=== PATIENT | female | born 1945 | race Caucasian/White ===

== ENCOUNTER 2022-07-18 14:28 | Inpatient (IN) | payer OTHER ==
[2022-07-18 18:37] LABS: BASO % 0.3 % (0-2.0); EOS % 2.4 % (0-4.5); HEMATOCRIT 30.6 % (32.4-45.2); HEMOGLOBIN 10.6 GM/dL (10.7-15.3); LYMPH % 20.5 % (8-40); MCH 33.2 pg (25.7-33.7); MCHC 34.5 g/dl (32.0-36.0); MEAN CELL VOLUME 96.3 fl (80-96); MEAN PLT VOLUME 7.7 fl (7.5-11.1); MONO % 8.4 % (3.8-10.2); NEUT % 68.4 % (42.8-82.8); PLATELET COUNT 311 10^3/uL (134-434); RBC 3.18 M/mm3 (3.60-5.2); WHITE BLOOD COUNT 8.4 K/mm3 (4.0-10.0)
[2022-07-18 18:39] LABS: CALCIUM 9.2 mg/dL (8.5-10.1)
[2022-07-18 18:40] LABS: BLOOD UREA NITROGEN 29.3 mg/dL (7-18)
[2022-07-18 18:42] LABS: CREATININE 1.6 mg/dL (0.55-1.3)
[2022-07-18 18:44] LABS: BILIRUBIN,TOTAL 0.2 mg/dL (0.2-1); TOT PROT 6.2 g/dl (6.4-8.2)
[2022-07-18] MEDS ORDERED: SODIUM CHLORIDE 0.9% 500 ML INFUS.BAG IV ONE (19:33)
[2022-07-18] MEDS ORDERED: D5-1/2NS+10 MEQ KCL - 10 MEQ/1,000 ML INFUS.BAG IV SCH (21:15)
[2022-07-18] MEDS ORDERED: PANTOPRAZOLE 40 MG TABLET PO ONE (21:54)
[2022-07-18] MEDS: PANTOPRAZOLE 40 MG TABLET PO SCH (22:04)
[2022-07-18] MEDS ORDERED: HEPARIN NA (PORCINE) 5,000 UNITS/ML 1ML VIAL ONE (22:13)
[2022-07-18] MEDS: HEPARIN NA (PORCINE) 5,000 UNITS/ML 1ML VIAL SQ SCH (22:21)
[2022-07-19] MEDS ORDERED: ACETAMINOPHEN 500 MG TABLET (FP) PO ONE (01:39)
[2022-07-19] MEDS ORDERED: MELATONIN 1 MG TABLET PO ONE (01:56)
[2022-07-19] MEDS: HEPARIN NA (PORCINE) 5,000 UNITS/ML 1ML VIAL SQ SCH (05:58)
[2022-07-19 06:59] VITALS: BMI 29.7
[2022-07-19 08:04] LABS: BASO % 0.6 % (0-2.0); EOS % 2.9 % (0-4.5); HEMATOCRIT 31.6 % (32.4-45.2); HEMOGLOBIN 10.7 GM/dL (10.7-15.3); LYMPH % 22.3 % (8-40); MCH 32.2 pg (25.7-33.7); MCHC 33.8 g/dl (32.0-36.0); MEAN CELL VOLUME 95.1 fl (80-96); MEAN PLT VOLUME 7.9 fl (7.5-11.1); MONO % 7.5 % (3.8-10.2); NEUT % 66.7 % (42.8-82.8); PLATELET COUNT 270 10^3/uL (134-434); RBC 3.32 M/mm3 (3.60-5.2); RDW 12.7 % (11.6-15.6); WHITE BLOOD COUNT 7.7 K/mm3 (4.0-10.0)
[2022-07-19 08:19] LABS: CALCIUM 9.4 mg/dL (8.5-10.1)
[2022-07-19 08:20] LABS: BLOOD UREA NITROGEN 22.8 mg/dL (7-18)
[2022-07-19 08:23] LABS: CREATININE 1.4 mg/dL (0.55-1.3)
[2022-07-19] MEDS ORDERED: IRON SUCROSE INJECTION 300 MG in SODIUM CHLORIDE 235 ML IVPB ONE (09:00)
[2022-07-19] MEDS ORDERED: PNEUMOC 20-VAL CONJ-DIP CRM/PF 0.5 ML SYRINGE IM ONE (10:00)
[2022-07-19] MEDS: PANTOPRAZOLE 40 MG TABLET PO SCH (10:19)
[2022-07-19] MEDS ORDERED: DOCUSATE SODIUM 100 MG CAPSULE (FP) PO PRN (12:44)
[2022-07-19] MEDS ORDERED: POLYETHYLENE GLYCOL (HEALTHYLAX) 3350 17 GM PACKET PO PRN (12:45)
[2022-07-19] MEDS ORDERED: TICAGRELOR 60 MG TABLET PO SCH (12:45)
[2022-07-19] MEDS ORDERED: SENNOSIDES 8.6MG TABLET (FP) PO PRN (12:46)
[2022-07-19] MEDS ORDERED: ACETAMINOPHEN 325 MG TABLET (FP) PO PRN (13:31)
[2022-07-19] MEDS ORDERED: metoPROLOL SUCCINATE 25 MG TAB.SR.24H (FP) PO SCH (13:45)
[2022-07-19] MEDS ORDERED: RANOLAZINE E.R. 500 MG TABLET (FP) PO SCH (13:45)
[2022-07-19] MEDS ORDERED: ASPIRIN COATED 81 MG TABLET.EC PO SCH (13:45)
[2022-07-19] MEDS ORDERED: SERTRALINE HCL 50 MG TABLET (FP) PO SCH (13:45)
[2022-07-19] MEDS ORDERED: hydrALAZINE HCL 50 MG TABLET (FP) PO SCH ×2 (14:00)
[2022-07-19 14:17] VITALS: RESP 20
[2022-07-19 16:14] VITALS: BP 139/71; PULSE 86; TEMP 98
[2022-07-19] MEDS ORDERED: INSULIN SLIDING SCALE (NOVOLOG) 1 VIAL SQ SCH (16:30)
[2022-07-19] MEDS ORDERED: amLODIPine BESYLATE 10 MG TABLET (FP) PO SCH (22:00)
[2022-07-19] MEDS ORDERED: GABAPENTIN 300 MG CAPSULE PO SCH (22:00)
[2022-07-19] MEDS ORDERED: MONTELUKAST NA 10 MG TABLET PO SCH (22:00)
[2022-07-19] MEDS ORDERED: ATORVASTATIN CA 80 MG TABLET (FP) PO SCH (22:00)
[2022-07-19] MEDS ORDERED: MELATONIN 1 MG TABLET PO SCH (22:00)
[2022-07-20] MEDS ORDERED: LOSARTAN POTASSIUM 50 MG TABLET PO SCH (10:00)
[2022-07-20] MEDS ORDERED: FERROUS SO4 325 MG TABLET (FP) PO SCH (10:00)
== END 2022-07-19 17:05 | disposition home or self-care (01) | DRG 312 ==
LOC: JER 14:28 → JERBED 21:04 → J7W 07-19 00:50
PROVIDERS: ADMIT Internal Medicine; ATTEND Internal Medicine
DX: R55 Syncope and collapse (principal); I25.10 Atherosclerotic heart disease of native coronary artery without angina pectoris; I10 Essential (primary) hypertension; E78.5 Hyperlipidemia, unspecified; D50.9 Iron deficiency anemia, unspecified
CPT/HCPCS: 0241U-QW; 36415; 70450-TC; 80048; 80053; 82728; 82962; 83540; 83550; 85025; 93005; 93010; 97116-GP; 97161-GP; 99285-25; J1644; J1756

== ENCOUNTER 2023-02-17 06:12 | Emergency (ER) | payer OTHER ==
[2023-02-17 06:24] VITALS: RESP 20; BMI 28.8
[2023-02-17] MEDS ORDERED: ONDANSETRON 4 MG/2 ML VIAL IVPUSH ONE (06:27)
[2023-02-17] MEDS ORDERED: ACETAMINOPHEN 1000 MG/100 ML BAG IVPB ONE (06:27)
[2023-02-17] MEDS ORDERED: ACETAMINOPHEN INJECTION 100 ML IVPB ONE (07:34)
[2023-02-17] MEDS ORDERED: ONDANSETRON 4 MG/2 ML VIAL ONE (07:34)
[2023-02-17] MEDS ORDERED: FAMOTIDINE 20 MG/50 ML IVPB 20 MG/50 ML MG IVPB ONE ×2 (07:38→07:41)
[2023-02-17 07:58] LABS: BASO % 0.5 % (0-2.0); EOS % 1.6 % (0-4.5); HEMATOCRIT 33.9 % (32.4-45.2); HEMOGLOBIN 11.6 GM/dL (10.7-15.3); LYMPH % 20.8 % (8-40); MCH 31.9 pg (25.7-33.7); MCHC 34.2 g/dl (32.0-36.0); MEAN CELL VOLUME 93.5 fl (80-96); MEAN PLT VOLUME 7.6 fl (7.5-11.1); MONO % 7.8 % (3.8-10.2); NEUT % 69.3 % (42.8-82.8); PLATELET COUNT 309 10^3/uL (134-434); RBC 3.62 M/mm3 (3.60-5.2); RDW 13.1 % (11.6-15.6); WHITE BLOOD COUNT 9.4 K/mm3 (4.0-10.0)
[2023-02-17] MEDS ORDERED: SODIUM CHLORIDE 0.9% 500 ML INFUS.BAG IV ONE ×2 (08:03→10:47)
[2023-02-17 08:14] LABS: POTASSIUM 4.6 mmol/L (3.5-5.1)
[2023-02-17 08:16] LABS: ALBUMIN 3.9 g/dl (3.4-5.0); CALCIUM 10.6 mg/dL (8.5-10.1); MAGNESIUM 1.6 mg/dL (1.8-2.4)
[2023-02-17 08:17] LABS: INR 1.07 (0.83-1.09); PROTHROMBIN TIME (PATIENT) 12.4 SEC (9.7-13.0)
[2023-02-17 08:19] LABS: CREATININE 1.7 mg/dL (0.55-1.3)
[2023-02-17 08:21] LABS: BILIRUBIN,TOTAL 0.4 mg/dL (0.2-1); TOT PROT 7.5 g/dl (6.4-8.2)
[2023-02-17] MEDS ORDERED: MAGNESIUM SULF 50% (8.12 MEQ/2 ML-1 GM VIAL) IVPB ONE (09:55)
[2023-02-17] MEDS ORDERED: MAGNESIUM SULFATE IN WATER 2 GM/50 ML IVPB IVPB ONE (10:02)
[2023-02-17 11:35] VITALS: BP 149/80; PULSE 96; TEMP 98.3
[2023-02-17 12:25] LABS: EPI CELLS 10 /uL (0-25.1); HYALINE CASTS 0 /uL (0-3.1); PH,URINE 6.5 (5.0-8.0); URINE APPEARANCE CLEAR; URINE BACTERIA 24 /uL (0-1359); URINE BILIRUBIN NEGATIVE (NEGATIVE); URINE COLOR YELLOW; URINE GLUCOSE (UA) NEGATIVE (NEGATIVE); URINE KETONE NEGATIVE (NEGATIVE); URINE LEUK ESTERASE TRACE (NEGATIVE); URINE NITRITE NEGATIVE (NEGATIVE); URINE PROTEIN NEGATIVE (NEGATIVE); URINE RBC 31 /uL (0-23.9); URINE UROBILINOGEN 0.2 mg/dL (0.2-1.0); URINE WBC 34 /uL (0-25.8)
== END 2023-02-17 17:45 | disposition home or self-care (01) ==
LOC: JER 06:12
PROC: 3E033GC Introduction of Other Therapeutic Substance into Peripheral Vein, Percutaneous Approach (ICD-10-PCS; principal; 2023-02-17)
PROC: 3E033GC Introduction of Other Therapeutic Substance into Peripheral Vein, Percutaneous Approach (ICD-10-PCS; 2023-02-17)
PROC: 3E033NZ Introduction of Analgesics, Hypnotics, Sedatives into Peripheral Vein, Percutaneous Approach (ICD-10-PCS; 2023-02-17)
PROC: 3E033GC Introduction of Other Therapeutic Substance into Peripheral Vein, Percutaneous Approach (ICD-10-PCS; 2023-02-17)
DX: R11.2 Nausea with vomiting, unspecified (principal); R10.84 Generalized abdominal pain; K59.00 Constipation, unspecified; R07.0 Pain in throat
CPT/HCPCS: 36415; 71045-TC-FY; 74176-TC; 80053; 81003; 83605; 83690; 83735; 84484; 85025; 85610; 85730; 87086; 93005; 93010; 99285-25

== ENCOUNTER 2023-08-03 04:18 | Day surgery (SDC) | payer OTHER ==
[2023-07-26 11:14] VITALS: BMI 28.8
[2023-08-03] MEDS ORDERED: LIDOCAINE HCL 1%, 10 MG/ML (20ML VIAL) ONE (07:19)
[2023-08-03] MEDS ORDERED: HEPARIN NA (PORCINE) 5,000 UNITS/ML 1ML VIAL ONE (07:19)
[2023-08-03] MEDS ORDERED: LIDOCAINE HCL/PF 2% SDV 5ML VIAL ONE (08:19)
[2023-08-03] MEDS ORDERED: PROPOFOL 40 ML ONE (08:19)
[2023-08-03] MEDS ORDERED: FENTANYL CITRATE/PF 50 MCG/ML VIAL ONE (08:19)
[2023-08-03] MEDS ORDERED: MIDAZOLAM HCL 2 MG/2 ML SINGLE DOSE VIAL ONE (08:19)
[2023-08-03] MEDS ORDERED: ceFAZolin SODIUM 1 GM VIAL ONE (08:40)
[2023-08-03] MEDS ORDERED: LIDOCAINE HCL 1%, 10 MG/ML (20ML VIAL) INF ONE (08:54)
[2023-08-03] MEDS ORDERED: HEPARIN NA (PORCINE) 5,000 UNITS/ML 1ML VIAL SQ ONE (08:54)
[2023-08-03] MEDS ORDERED: ONDANSETRON 4 MG/2 ML VIAL ONE (09:31)
[2023-08-03] MEDS ORDERED: ONDANSETRON 4 MG/2 ML VIAL IVPUSH PRN (09:50)
[2023-08-03] MEDS ORDERED: oxyCODONE HCL 5 MG TABLET PO PRN (09:50)
[2023-08-03] MEDS ORDERED: ACETAMINOPHEN 325 MG TABLET (FP) PO PRN (09:50)
[2023-08-03] MEDS ORDERED: LACTATED RINGERS SOLUTION 1,000 ML IV SCH (10:00)
[2023-08-03 15:10] VITALS: BP 128/78; PULSE 78; RESP 18; TEMP 97.8
== END 2023-08-03 14:15 | disposition home or self-care (01) ==
LOC: JASU-SURG 04:18
PROVIDERS: ATTEND Surgery Vascular Surgery
PROC: 047K3D1 Dilation of Right Femoral Artery with Intraluminal Device, using Drug-Coated Balloon, Percutaneous Approach (ICD-10-PCS; principal; 2023-08-03 08:00)
DX: I70.211 Atherosclerosis of native arteries of extremities with intermittent claudication, right leg (principal)
CPT/HCPCS: 37226; C1877; 76000-TC-FY; 82962; 94760; C1724; C1760; C1769; C1876; C1897; C2623; J1644

== ENCOUNTER 2023-08-09 09:02 | Emergency (ER) | payer OTHER ==
[2023-08-09 09:57] VITALS: BMI 27.4
[2023-08-09 10:24] LABS: BASO % 0.6 % (0-2.0); EOS % 2.4 % (0-4.5); HEMATOCRIT 31.6 % (32.4-45.2); HEMOGLOBIN 10.7 GM/dL (10.7-15.3); LYMPH % 24.2 % (8-40); MCH 32.6 pg (25.7-33.7); MCHC 33.8 g/dl (32.0-36.0); MEAN CELL VOLUME 96.5 fl (80-96); MEAN PLT VOLUME 7.4 fl (7.5-11.1); MONO % 7.1 % (3.8-10.2); NEUT % 65.7 % (42.8-82.8); PLATELET COUNT 351 10^3/uL (134-434); RBC 3.27 M/mm3 (3.60-5.2); RDW 13.5 % (11.6-15.6); WHITE BLOOD COUNT 8.1 K/mm3 (4.0-10.0)
[2023-08-09 10:31] LABS: INR 1.06 (0.83-1.09); PROTHROMBIN TIME (PATIENT) 12.3 SEC (9.7-13.0)
[2023-08-09 10:34] LABS: ACTIVATED PTT 35.7 SECONDS (25.2-36.5)
[2023-08-09 10:40] LABS: POTASSIUM 4.6 mmol/L (3.5-5.1)
[2023-08-09 10:42] LABS: BLOOD UREA NITROGEN 30.8 mg/dL (7-18); CALCIUM 10.2 mg/dL (8.5-10.1)
[2023-08-09 10:43] LABS: ALBUMIN 3.3 g/dl (3.4-5.0)
[2023-08-09 10:46] LABS: CREATININE 1.7 mg/dL (0.55-1.3)
[2023-08-09 10:47] LABS: BILIRUBIN,TOTAL 0.4 mg/dL (0.2-1); TOT PROT 6.8 g/dl (6.4-8.2)
[2023-08-09 14:07] VITALS: RESP 18
[2023-08-09 21:49] VITALS: BP 152/68; PULSE 85; TEMP 98.4
== END 2023-08-09 22:06 | disposition home or self-care (01) ==
LOC: JER 09:02
DX: R20.0 Anesthesia of skin (principal); H43.392 Other vitreous opacities, left eye; H53.8 Other visual disturbances
CPT/HCPCS: 36415; 70450-TC; 76512; 80053; 82962; 85025; 85610; 85730; 93005; 93010; 99285-25

== ENCOUNTER 2023-11-11 13:08 | Emergency (ER) | payer OTHER ==
[2023-11-11 13:31] VITALS: BP 140/62; PULSE 76; RESP 20; TEMP 98.6; BMI 27.1
== END 2023-11-11 20:57 | disposition home or self-care (01) ==
LOC: JER 13:08
DX: M79.672 Pain in left foot (principal); W01.0XXD Fall on same level from slipping, tripping and stumbling without subsequent striking against object, subsequent encounter; Y93.89 Activity, other specified
CPT/HCPCS: 99282-25

== ENCOUNTER 2025-05-10 12:17 | Emergency (ER) | payer OTHER ==
[2025-05-10 12:26] VITALS: TEMP 97.6; BMI 25.3
[2025-05-10] MEDS ORDERED: TETRACAINE 0.5% OPHTH SOLN 2 ML BOTTLE ONE ×2 (12:55→16:02)
[2025-05-10] MEDS ORDERED: FLUORESCEIN NA 1 EA STRIP ONE (12:55)
[2025-05-10] MEDS: FLUORESCEIN NA 1 EA STRIP OS ONE (13:33)
[2025-05-10] MEDS: TETRACAINE 0.5% OPHTH SOLN 2 ML BOTTLE OU ONE (13:34)
[2025-05-10] MEDS ORDERED: ACETAMINOPHEN 325 MG TABLET (FP) ONE (14:16)
[2025-05-10] MEDS: TIMOLOL 0.5% OPHTHALMIC SOL 5 ML BOTTLE OS SCH (14:25)
[2025-05-10] MEDS: ACETAMINOPHEN 325 MG TABLET (FP) PO ONE (14:35)
[2025-05-10] MEDS: LATANOPROST 0.005% OPHTH SOLN 2.5ML BOTTLE OS ONE (14:35)
[2025-05-10] MEDS: TIMOLOL 0.5% OPHTHALMIC SOL 5 ML BOTTLE OS ONE (14:39)
[2025-05-10 15:47] VITALS: BP 127/53; PULSE 77; RESP 16
[2025-05-10] MEDS: TETRACAINE 0.5% OPHTH SOLN 2 ML BOTTLE OS ONE (16:43)
[2025-05-10] MEDS ORDERED: DIPHTH,PERTUSS(ACELL),TET 0.5 ML DISP.SYRIN IM ONE (18:12)
[2025-05-10] MEDS ORDERED: ERYTHROMYCIN 0.5% OPHTHALMIC OINTMENT 3.5 GM TUBE ONE (18:12)
[2025-05-10] MEDS: DIPHTH,PERTUSS(ACELL),TET 0.5 ML DISP.SYRIN IM ONE (18:23)
[2025-05-10] MEDS: ERYTHROMYCIN 0.5% OPHTHALMIC OINTMENT 3.5 GM TUBE OS SCH (18:32)
[2025-05-10] MEDS ORDERED: LATANOPROST 0.005% OPHTH SOLN 2.5ML BOTTLE OS SCH (22:00)
== END 2025-05-10 18:42 | disposition short-term general hospital (02) ==
LOC: JER 12:17
PROC: 3E0234Z Introduction of Serum, Toxoid and Vaccine into Muscle, Percutaneous Approach (ICD-10-PCS; principal; 2025-05-10)
DX: S05.02XA Injury of conjunctiva and corneal abrasion without foreign body, left eye, initial encounter (principal); H40.052 Ocular hypertension, left eye; H53.142 Visual discomfort, left eye; Z23 Encounter for immunization; X58.XXXA Exposure to other specified factors, initial encounter
CPT/HCPCS: 90471; 90715; 99291